=== PATIENT | female | born 1995 | race Hispanic/Latino ===

== ENCOUNTER 2017-10-09 18:54 | Emergency (ER) | payer BC ==
[2017-10-09 19:02] VITALS: TEMP 97.5
--- NOTE | 2017-10-09 20:03 | C.PDOC ---
History Of Present Illness 22 year old male presents to the ER with a complaint of intermittently lower abdominal pain for the past week that has worsened since 4 days ago. Patient was seen by her LAST REMODELER REPAIRER who referred her to an imaging center to have an US done, results showed she had a left ovarian cyst. Patient states the pain continues and was instructed by her LAST REMODELER REPAIRER to go to a hospital to makes sure the ovary is not twisted. Paient admits to some scant vaginal discharge, but denies nausea, vomiting, fever, painful intercourse, or abdominal surgeries. Chief Complaint (Nursing): Abdominal Pain History Per: Patient History/Exam Limitations: no limitations Onset/Duration Of Symptoms: Days Current Symptoms Are (Timing): Still Present Location Of Pain/Discomfort: Other (Lower abdominal) Radiation Of Pain To:: None Quality Of Discomfort: Unable To Describe Associated Symptoms: Other (Scant vaginal discharge). denies: Fever, Chills, Nausea, Vomiting Exacerbating Factors: None Alleviating Factors: None Recent travel outside of the [place]: No Abnormal Vaginal Bleeding: No Past Medical History Reviewed: Historical Data, Nursing Documentation, Vital Signs Vital Signs: Last Vital Signs Temp 97.5 F L 10/09/17 22:31 Pulse 70 10/09/17 22:31 Resp 16 10/09/17 22:31 BP 101/66 10/09/17 22:31 Pulse Ox 99 10/09/17 23:01 - Medical History PMH: Asthma Family History: States: Unknown Family Hx - Social History Hx Alcohol Use: Yes Hx Substance Use: No - Immunization History Hx Tetanus Toxoid Vaccination: No Hx Influenza Vaccination: No Hx Pneumococcal Vaccination: No Review Of Systems Constitutional: Negative for: Fever Cardiovascular: Negative for: Light Headedness Respiratory: Negative for: Cough Gastrointestinal: Positive for: Abdominal Pain. Negative for: Nausea, Vomiting Genitourinary: Positive for: Vaginal Discharge (scant) Physical Exam - Physical Exam Appears: Non-toxic, No Acute Distress Skin: Normal Color, Warm, Dry Head: Atraumatic, Normacephalic Eye(s): bilateral: Normal Inspection Oral Mucosa: Moist Chest: Symmetrical, No Tenderness Cardiovascular: Rhythm Regular Respiratory: Normal Breath Sounds, No Rales, No Rhonchi, No Wheezing Gastrointestinal/Abdominal: Soft, Tenderness (Moderate to LLQ on palpation. Milder but present suprapubic. No RLQ), No Guarding, No Rebound Back: No CVA Tenderness Neurological/Psych: Oriented x3, Normal Speech ED Course And Treatment - Laboratory Results Result Diagrams: 10/09/17 20:10 10/09/17 20:10 O2 Sat by Pulse Oximetry: 99 (Room air) Pulse Ox Interpretation: Normal - CT Scan/US Transvaginal US Other Rad Studies (CT/US): Read By Radiologist, Radiology Report Reviewed CT/US Interpretation: EXAM: US Pelvis Complete, transvaginal. CLINICAL HISTORY : 22 years old, female; Pain; Abdominal pain; Other: Abd pain. TECHNIQUE: Real-time transvaginal l pelvic ultrasound (complete) with image documentation. COMPARISON: No relevant prior studies available. FINDINGS: Transvaginal ultrasound was performed for more precise delineation of the ovaries. Uterus/ cervix: The uterus measures 6.9 x 3 x 4.9 cm. endometrial stripe measures 5 mm. An. intrauterine device is present within the uterus. Right ovary: . The right ovary measures 4.2 x 3.8 x 4 cm. there is a 3.1 cm simple cyst within the right. ovary. Several subcentimeter follicles are present. Blood flow is seen in the right ovary on color. Doppler and pulse Doppler examination.. Left ovary: The left ovary measures 3.7 x 2.8 x 3.6 cm. a complex follicle with a hyperechoic. hypervascular rim is noted measuring 2.4 cm in maximum diameter. Blood flow is seen in the left. ovary on color Doppler and pulsed Doppler examination. Subcentimeter follicles are also noted the. left ovary. Free fluid: A small amount of fluid is present in the posterior cul-de-sac and adjacent to each ovary. MPRESSION: 1. In a clinical setting of a negative beta hCG, the complex follicle in the left ovary represents corpus. luteum cyst. No evidence of torsion in either ovary Transabdominal US Other Rad Studies (CT/US): Read By Radiologist, Radiology Report Reviewed CT/US Interpretation: EXAM: US Pelvis Complete, Transabdominal. EXAM DATE/TIME : Exam ordered 10/09/2017 8:01 PM. CLINICAL HISTORY: 22 years old, female; Pain; Abdominal pain; Other: Abd pain. TECHNIQUE: Real-time transabdominal pelvic ultrasound (complete) with image documentation. COMPARISON: No relevant prior studies available. FINDINGS: Uterus/cervix: Endometrial stripe measures 5 mm. The uterus measures 6.9 x 3.6 x 4 cm. An. intrauterine device is present. Right ovary: The right ovary measures 4 x 3.3 and sagittal and AP dimension. A complex follicle. measuring 2.4 cm is noted in the right ovary. Left ovary: Not seen as a separate structure. Free fluid: No free fluid. Bladder: Unremarkable as visualized. Wall is normal thickness for degree of distention. IMPRESSION: Nonvisualization of the left ovary. Suboptimal visualization of the right ovary. Medical Decision Making Medical Decision Making: Impression is probably ovarian cyst pain, will do blood work, urinalysis, and US to rule out torsion. Disposition - Disposition Referrals: [facility] [Outside] Disposition: HOME/ ROUTINE Disposition Time: 06:39 Condition: GOOD Prescriptions: Ondansetron ODT [Zofran ODT] 4 mg PO TID #12 odt oxyCODONE/Acetaminophen [Percocet 5/325 mg Tab] 1 ea PO QID PRN #12 tab PRN Reason: Pain, Mild (1-3) Instructions: Pancreatitis, Ovarian Cysts Forms: [employer] (Sing[place]an) Print Language: ARMENIAN - Clinical Impression Clinical Impression: Ovarian cyst, UTI (urinary tract infection) - Scribe Statement The provider has reviewed the documentation as recorded by the Scribe Bud Tom All medical record entries made by the Scribe were at my direction and personally dictated by me. I have reviewed the chart and agree that the record accurately reflects my personal performance of the history, physical exam, medical decision making, and the department course for this patient. I have also personally directed, reviewed, and agree with the discharge instructions and disposition.
[2017-10-09 20:13] LABS: BASO % 0.8 % (0.0-2.0); EOS # 0.1 K/uL (0.0-0.7); EOS % 1.7 % (0.0-4.0); HEMOGLOBIN 13.5 g/dL (11.0-16.0); LYMPH # 1.9 K/uL (1.0-4.3); LYMPH % 35.5 % (20.0-40.0); MEAN CELL VOLUME 92.1 fL (81.0-99.0); MEAN CORPUSCULAR HEMOGLOBIN 32.7 pg (27.0-31.0); MEAN CORPUSCULAR HGB CONC 35.5 g/dL (33.0-37.0); MONO # 0.5 K/uL (0.0-0.8); MONO % 9.8 % (0.0-10.0); NEUT # 2.8 K/uL (1.8-7.0); NEUT % 52.2 % (50.0-75.0); RBC 4.14 Mil/uL (3.80-5.20); RED CELL DISTRIBUTION WIDTH 12.3 % (11.5-14.5); WHITE BLOOD COUNT 5.4 K/uL (4.8-10.8)
[2017-10-09 20:16] LABS: HCG,QUALITATIVE URINE NEGATIVE (NEGATIVE)
[2017-10-09 20:17] LABS: URINE BACTERIA OCC (<OCC); URINE BILIRUBIN NEGATIVE (NEGATIVE); URINE BLOOD NEGATIVE (NEGATIVE); URINE CLARITY Clear (Clear); URINE COLOR Straw (YELLOW); URINE GLUCOSE (UA) NORMAL (Normal); URINE LEUKOCYTE ESTERASE NEG Leu/uL (Negative); URINE PROTEIN NEGATIVE (NEGATIVE); URINE UROBILINOGEN NORMAL mg/dL (0.2-1.0)
[2017-10-09 20:25] LABS: ALB/GLOB RATIO 1.4 (1.0-2.1); ALBUMIN 4.7 g/dL (3.5-5.0); ALT/SGPT 42 U/L (9-52); AST/SGOT 23 U/L (14-36); BLOOD UREA NITROGEN 13 mg/dL (7-17); CALCIUM 9.1 mg/dl (8.6-10.4); GFR AFRICAN-AMERICAN > 60; GFR NON-AFRICAN AMERICAN > 60; LIPASE 391 U/L (23-300)
[2017-10-09 22:32] VITALS: BP 101/66; PULSE 70; RESP 16
--- NOTE | 2017-10-09 22:41 | US ---
EXAM: US Pelvis Complete, transvaginal CLINICAL HISTORY: 22 years old, female; Pain; Abdominal pain; Other: Abd pain TECHNIQUE: Real-time transvaginal l pelvic ultrasound (complete) with image documentation. COMPARISON: No relevant prior studies available. FINDINGS: Transvaginal ultrasound was performed for more precise delineation of the ovaries. Uterus/cervix: The uterus measures 6.9 x 3 x 4.9 cm. endometrial stripe measures 5 mm. An intrauterine device is present within the uterus. Right ovary: . The right ovary measures 4.2 x 3.8 x 4 cm. there is a 3.1 cm simple cyst within the right ovary. Several subcentimeter follicles are present. Blood flow is seen in the right ovary on color Doppler and pulse Doppler examination.. Left ovary: The left ovary measures 3.7 x 2.8 x 3.6 cm. a complex follicle with a hyperechoic hypervascular rim is noted measuring 2.4 cm in maximum diameter. Blood flow is seen in the left ovary on color Doppler and pulsed Doppler examination. Subcentimeter follicles are also noted the left ovary. Free fluid: A small amount of fluid is present in the posterior cul-de-sac and adjacent to each ovary MPRESSION: 1. In a clinical setting of a negative beta hCG, the complex follicle in the left ovary represents corpus luteum cyst. No evidence of torsion in either ovary EXAM: US Pelvis Complete, Transabdominal EXAM DATE/TIME: Exam ordered 10/09/2017 8:01 PM CLINICAL HISTORY: 22 years old, female; Pain; Abdominal pain; Other: Abd pain TECHNIQUE: Real-time transabdominal pelvic ultrasound (complete) with image documentation. COMPARISON: No relevant prior studies available. FINDINGS: Uterus/cervix: Endometrial stripe measures 5 mm. The uterus measures 6.9 x 3.6 x 4 cm. An intrauterine device is present. Right ovary: The right ovary measures 4 x 3.3 and sagittal and AP dimension. A complex follicle measuring 2.4 cm is noted in the right ovary. Left ovary: Not seen as a separate structure. Free fluid: No free fluid. Bladder: Unremarkable as visualized. Wall is normal thickness for degree of distention. IMPRESSION: Nonvisualization of the left ovary. Suboptimal visualization of the right ovary.
[2017-10-09 23:02] VITALS: O2SAT 99
== END 2017-10-09 23:22 | disposition home or self-care (01) ==
LOC: C.ER 18:54
DX: N83.209 Unspecified ovarian cyst, unspecified side (principal); N39.0 Urinary tract infection, site not specified
CPT/HCPCS: 76830; 76856; 80053; 81001; 83690; 84703; 85025; 96374; 99285; J1885

== ENCOUNTER 2018-07-04 09:26 | Day surgery (SDC) | payer BC ==
[2018-07-04 10:02] VITALS: BMI 22.6
[2018-07-04 10:45] VITALS: PULSE 81; RESP 20; TEMP 98.4; O2SAT 100
[2018-07-04] MEDS ORDERED: Lactated Ringer's 1,000 ML IV ONE (13:25)
[2018-07-04] MEDS ORDERED: Propofol 10 mg/ml Inj (20 ML) ONE (13:26)
[2018-07-04 14:39] VITALS: BP 116/79
== END 2018-07-04 14:39 | disposition home or self-care (01) ==
LOC: C.ENDO 09:26
PROVIDERS: ATTEND Internal Medicine Gastroenterology
DX: R10.13 Epigastric pain (principal); K29.70 Gastritis, unspecified, without bleeding
CPT/HCPCS: 43239; 84703; 88305; J2704; J7120

== ENCOUNTER 2018-07-27 09:20 | Outpatient (CLI) | payer BC | END 2018-07-27 09:21 | disposition home or self-care (01) | LOC: C.CTH 09:20 ==